=== PATIENT | female | born 1965 ===

== ENCOUNTER 2018-07-13 16:58 | Emergency (ER) | payer SELFPAY ==
--- NOTE | 2018-07-13 17:10 | UC ---
Skin Complaint HPI - HPI Summary HPI Summary: 52 yo female presents with rash to left groin. She tells me that about 3-4 days ago she felt a burning sensation in her left groin and thigh. Last night noticed some red lesions to the area that are more numerous today. Mildly painful and itchy. Thinks she has shingles. Denies new soaps/detergents/ exposures. - History of Current Complaint Time Seen by Provider: 07/13/18 17:10 Stated Complaint: RASH Hx Obtained From: Patient Onset/Duration: Gradual Onset Onset Severity: Mild Current Severity: Mild Pain Intensity: 4 Pain Scale Used: 0-10 Numeric - Allergy/Home Medications Allergies/Adverse Reactions: Allergies Allergy/AdvReac Type Severity Reaction Status Date / Time No Known Allergies Allergy Verified 07/13/18 17:11 Home Medications: Home Medications Lovastatin [Altoprev] 20 mg PO DAILY 07/13/18 [History Confirmed 07/13/18] metFORMIN* [Glucophage 500 MG TAB *] 500 mg PO BID 07/13/18 [History Confirmed 07/13/18] Review of Systems Constitutional: Negative Skin: Rash Respiratory: Negative Cardiovascular: Negative Neurovascular: Negative Musculoskeletal: Negative Neurological: Negative Psychological: Negative All Other Systems Reviewed And Are Negative: Yes PMH/Surg Hx/FS Hx/Imm Hx Endocrine History: Diabetes, Dyslipidemia - Family History Known Family History: Positive: Hypertension, Diabetes - Social History Occupation: Employed Full-time Lives: With Family Alcohol Use: Occasionally Substance Use Type: None Smoking Status (MU): Never Smoked Tobacco Physical Exam - Summary Physical Exam Summary: GENERAL: NAD. WDWN. No pain distress. SKIN: Left inner thigh along dermatome L2 there are clusters of erythematous slightly raised lesions that are mildly TTP with scant blistering. Do not cross midline. No streaking, bleeding, or drainage. NECK: Supple. Nontender. No lymphadenopathy. CHEST: No accessory muscle use. Breathing comfortably and in no distress. CV: Pulses intact. Cap refill <2seconds NEURO: Alert. CN II-XII grossly intact. PSYCH: Age appropriate behavior. Triage Information Reviewed: Yes Vital Signs: Vital Signs: Temp Pulse Resp BP Pulse Ox 97.0 F 84 18 145/70 97 07/13/18 17:12 07/13/18 17:12 07/13/18 17:12 07/13/18 17:12 07/13/18 17:12 Vital Signs Reviewed: Yes Course/Dx - Course Course Of Treatment: Shingles left L2. Rx for acyclovir as pt does not have insurance and this is on the Urgent Rx plan. Also neurontin for pain to start with 100mg QD...may increase to TID if she tolerates well. - Diagnoses Provider Diagnoses: Shingles L2 left Discharge - Sign-Out/Discharge Documenting (check all that apply): Patient Departure All imaging exams completed and their final reports reviewed: No Studies - Discharge Plan Condition: Stable Disposition: HOME Prescriptions: Acyclovir* [Zovirax 400 MG TAB*] 800 mg PO QID #56 tab Gabapentin CAP(*) [Neurontin 100 mg CAP(*)] 100 mg PO TID #21 cap Patient Education Materials: Shingles (ED) Referrals: No Primary Care Phys,NOPCP [Primary Care Provider] - Additional Instructions: If you develop a fever, shortness of breath, chest pain, new or worsening symptoms - please call your PCP or go to the ED. Your blood pressure was high at todays visit. Please see your primary provider within 4 weeks for recheck and re-evaluation. 1) Keep the area covered at all times until well healed 2) Start with 100mg once a day of the neurontin for pain. May increased to twice a day if you tolerate this well. If you tolerate one pill twice a day well , then you may increase it to three times a day. - Billing Disposition and Condition Condition: STABLE Disposition: Home
[2018-07-13 17:17] VITALS: BP 145/70
== END 2018-07-13 17:50 | disposition home or self-care (01) ==
LOC: UCEAST 16:58
DX: B02.9 Zoster without complications (principal)
CPT/HCPCS: 99202; G0463